=== PATIENT | female | born 1945 | race African-American/Black ===

== ENCOUNTER 2019-02-02 20:22 | Emergency (ER) | payer MEDICARE, OTHER ==
[~2019-02-02] VITALS: Ht 165.1 cm; Wt 70.9 kg
[2019-02-02] MEDS ORDERED: SODIUM CHLORIDE 0.9% 1,000 ML IV ONE (20:25)
[2019-02-02] MEDS ORDERED: LABETALOL 5MG/ML SYR 20 MG/4 ML SYRINGE IV ONE (20:30)
[2019-02-02 20:56] LABS: BASOPHILS % 0.6 % (0.0-2.0); EOSINOPHILS % 1.8 % (0.0-5.0); HEMATOCRIT. 39.5 % (36.0-48.0); HEMOGLOBIN. 13.6 g/dL (12.0-16.0); LYMPHOCYTES % 39.4 % (20.0-50.0); MEAN CORPUSCULAR HEMOGLOBIN 31.7 pg (28.0-32.0); MEAN CORPUSCULAR VOLUME 92.1 fL (81.0-99.0); MEAN PLATELET VOLUME 8.6 fl (7.4-10.4); MONOCYTES % 8.9 % (2.0-8.0); NEUTROPHILS % 49.3 % (40.0-76.0); PLATELET 276 x1000/uL (130-400); RED BLOOD CELL COUNT 4.29 mill/uL (4.2-5.4)
[2019-02-02 21:03] LABS: CHLORIDE 100 mEq/L (98-107)
[2019-02-02 21:07] LABS: ETHANOL BLOOD < 10 mg/dL
[2019-02-02 21:10] LABS: LDL CHOLESTEROL 89 mg/dL (5-100)
[2019-02-02 21:11] LABS: CREATINE KINASE 221 IU/L (26-192)
[2019-02-02] MEDS ORDERED: IOHEXOL-350 100 ML BOTTLE ONE (21:17)
[2019-02-02 21:29] LABS: PROTHROMBIN TIME 10.7 sec (9.6-11.0)
[2019-02-02] MEDS ORDERED: ALTEPLASE 100MG/VIAL IV NR (21:50)
[2019-02-02] MEDS ORDERED: ALTEPLASE 2MG/VIAL ITC NR (21:51)
[2019-02-02] MEDS ORDERED: *NO ASPIRIN X 24 HOURS XX SCH (21:51)
[2019-02-02 23:47] VITALS: BP 143/66
== END 2019-02-02 23:48 | disposition short-term general hospital (02) ==
LOC: ER 20:38 → CANBEDREQ 02-03 02:37
DX: I63.9 Cerebral infarction, unspecified (principal); E11.9 Type 2 diabetes mellitus without complications; I10 Essential (primary) hypertension
CPT/HCPCS: 36415; 37195; 70450; 70496; 70498; 71045; 80053; 80320; 82550; 82962; 83721; 83880; 84484; 85025; 85610; 93005; 96374; 99291; J2997; J7030; Q9967; G0480